=== PATIENT | male | born 1925 | race Caucasian/White ===

== ENCOUNTER → 2017-02-02 | Outpatient (CLI) | payer OTHER, MEDICARE | LOC: BHCLAF 11:30 | PROVIDERS: ATTEND Internal Medicine | DX: I48.91 Unspecified atrial fibrillation (principal); I34.9 Nonrheumatic mitral valve disorder, unspecified; I35.9 Nonrheumatic aortic valve disorder, unspecified | CPT/HCPCS: 93306-PO ==